=== PATIENT | female | born 1985 | race Two or more races ===

== ENCOUNTER 2021-05-02 06:16 | Day surgery (SDC) | payer OTHER ==
[~2021-05-02 06:16] MED LIST: PRENATAL PO
== END 2021-05-02 16:35 | disposition home or self-care (01) ==
LOC: CIR.AMB 06:16
PROVIDERS: ATTEND Obstetrics & Gynecology
DX: O34.32 Maternal care for cervical incompetence, second trimester (principal); Z3A.13 13 weeks gestation of pregnancy

== ENCOUNTER 2021-10-25 11:45 | Inpatient (IN) | payer OTHER ==
[~2021-10-25] VITALS: Ht 170.2 cm; Wt 3.2 kg
[2021-10-25] MEDS ORDERED: PEPCID AC10 MG PO (13:47)
[2021-10-31] MEDS ORDERED: CONCEPT OB CAP1 EACH (11:19)
== END 2021-11-03 14:33 | disposition home or self-care (01) | DRG 786 ==
LOC: O/R 10-31 08:34 → SURG-SUITE 10-31 08:34 → OB/GYN 10-31 10:30 → SURG-SUITE 10-31 12:44
PROVIDERS: ADMIT Obstetrics & Gynecology Maternal & Fetal Medicine; ATTEND Obstetrics & Gynecology Maternal & Fetal Medicine
PROC: 0UCC7ZZ Extirpation of Matter from Cervix, Via Natural or Artificial Opening (ICD-10-PCS; 2021-10-31)
PROC: 4A1HXCZ Monitoring of Products of Conception, Cardiac Rate, External Approach (ICD-10-PCS; 2021-10-31)
PROC: 10D00Z1 Extraction of Products of Conception, Low, Open Approach (ICD-10-PCS; principal; 2021-10-31 10:30)
DX: O34.211 Maternal care for low transverse scar from previous cesarean delivery (principal); O34.33 Maternal care for cervical incompetence, third trimester; Z3A.39 39 weeks gestation of pregnancy; Z37.0 Single live birth; Z20.822 Contact with and (suspected) exposure to COVID-19